=== PATIENT | female | born 1980 | race African-American/Black ===

== ENCOUNTER 2016-05-22 13:54 | Emergency (ER) | payer MEDICAID | END 2016-05-22 16:36 | disposition left against medical advice (07) | LOC: ER 13:55 | DX: R10.9 Unspecified abdominal pain (principal); Z53.21 Procedure and treatment not carried out due to patient leaving prior to being seen by health care provider ==

== ENCOUNTER 2016-05-27 12:59 | Emergency (ER) | payer MEDICAID ==
[~2016-05-27] VITALS: Ht 175.3 cm; Wt 59.0 kg
[2016-05-27 16:40] LABS: CLARITY URINE CLEAR (CLEAR); COLOR URINE YELLOW (YELLOW); GLUCOSE URINE NEGATIVE (NEGATIVE); KETONES URINE TRACE (NEGATIVE); LEUKOCYTE ESTERASE URINE 1+ (NEGATIVE); NITRITE URINE NEGATIVE (NEGATIVE); OCCULT BLOOD URINE NEGATIVE (NEGATIVE); PROTEIN URINE NEGATIVE (NEGATIVE); SPECIFIC GRAVITY URINE 1.024 (1.005-1.030); UROBILINOGEN URINE 0.2 E.U./dL (0.2-1.0)
[2016-05-27 16:48] LABS: BASOPHILS % 1.1 % (0.0-2.0); DIFFERENTIAL COMMENT 0; EOSINOPHILS % 0.7 % (0.0-5.0); HEMATOCRIT. 40.7 % (36.0-48.0); HEMOGLOBIN. 13.7 g/dL (12.0-16.0); LYMPHOCYTES % 31.9 % (20.0-50.0); MEAN CORPUSCULAR HEMOGLOBIN 33.2 pg (28.0-32.0); MEAN CORPUSCULAR HGB CONC 33.6 g/dL (31.0-37.0); MEAN CORPUSCULAR VOLUME 98.8 fL (81.0-99.0); MONOCYTES % 5.7 % (2.0-8.0); NEUTROPHILS % 60.6 % (40.0-76.0); PLATELET 139 x1000/uL (130-400); RED BLOOD CELL COUNT 4.12 mill/uL (4.2-5.4); RED CELL DISTRIBUTION WIDTH 13.9 % (11.6-14.6); WHITE BLOOD COUNT 7.3 x1000/uL (4.5-11.0)
[2016-05-27 17:12] LABS: BACTERIA URINE 1+; RBC URINE 0-2 /hpf (0-2); SQUAMOUS EPITHELIAL CELL URINE 1+ /lpf (RARE/1+)
[2016-05-27 18:00] VITALS: BP 122/79
== END 2016-05-27 18:00 | disposition home or self-care (01) ==
LOC: ER 14:23
DX: N39.0 Urinary tract infection, site not specified (principal); F31.9 Bipolar disorder, unspecified; F12.10 Cannabis abuse, uncomplicated; Y04.0XXA Assault by unarmed brawl or fight, initial encounter; Y93.89 Activity, other specified; Y92.89 Other specified places as the place of occurrence of the external cause; Y99.8 Other external cause status
CPT/HCPCS: 36415; 81001; 81025; 84702; 85025; 99284

== ENCOUNTER 2016-09-07 07:57 | Emergency (ER) | payer MEDICAID ==
[~2016-09-07] VITALS: Ht 175.3 cm; Wt 58.0 kg
[2016-09-07 08:00] VITALS: BP 122/99
== END 2016-09-07 09:52 | disposition left against medical advice (07) ==
LOC: ER 07:58
DX: S90.415A Abrasion, left lesser toe(s), initial encounter (principal); F12.10 Cannabis abuse, uncomplicated; Y93.39 Activity, other involving climbing, rappelling and jumping off; Y99.8 Other external cause status; Y92.810 Car as the place of occurrence of the external cause
CPT/HCPCS: 81025; 99282

== ENCOUNTER 2017-05-25 08:45 | Emergency (ER) | payer MEDICAID ==
[~2017-05-25] VITALS: Ht 177.8 cm; Wt 55.0 kg
[2017-05-25 08:49] VITALS: BP 115/78
== END 2017-05-25 09:31 | disposition home or self-care (01) ==
LOC: ER 08:50
DX: R21 Rash and other nonspecific skin eruption (principal); L29.9 Pruritus, unspecified; F12.10 Cannabis abuse, uncomplicated
CPT/HCPCS: 81025; 99283

== ENCOUNTER 2017-09-21 16:38 | Emergency (ER) | payer MEDICAID ==
[~2017-09-21] VITALS: Ht 177.8 cm; Wt 57.0 kg
[2017-09-21 17:27] VITALS: BP 103/68
== END 2017-09-21 20:45 | disposition left against medical advice (07) ==
LOC: ER 17:04
DX: R21 Rash and other nonspecific skin eruption (principal); L29.9 Pruritus, unspecified; F12.10 Cannabis abuse, uncomplicated; F17.200 Nicotine dependence, unspecified, uncomplicated
CPT/HCPCS: 99281